=== PATIENT | male | born 1975 | race Caucasian/White ===

== ENCOUNTER 2021-11-18 06:05 | Emergency (ER) | payer OTHER ==
[~2021-11-18] VITALS: Ht 165.1 cm; Wt 68.0 kg
[~2021-11-18 06:05] MED LIST: ALLEGRA ALLERG180 MG PO; FLONASE16 GM NASAL
== END 2021-11-18 10:42 | disposition home or self-care (01) ==
LOC: ER 06:05
DX: M79.662 Pain in left lower leg (principal)